=== PATIENT | female | born 1980 | race Caucasian/White ===

== ENCOUNTER 2016-12-02 12:04 | Day surgery (SDC) | payer SELFPAY ==
[~2016-12-02] VITALS: Ht 165.1 cm; Wt 66.5 kg
[2016-12-02] VITALS (10 sets, daily range): BP systolic 84–102; BP diastolic 50–60; PULSE 46–61; RESP 6–16; O2SAT 96–99
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
[~2016-12-02 12:04] MED LIST: Lactated Ringer's 1,000 ML IV SCH; OXYM30SP18 NS
[2016-12-02] MEDS ORDERED: Dexamethasone 4 mg/mL Inj ONE (12:05)
[2016-12-02] MEDS ORDERED: Oxytocin 10 Unit/mL Inj ONE (12:05)
[2016-12-02] MEDS ORDERED: fentaNYL-PF 50 mCg/mL 2 mL Inj ONE (12:05)
[2016-12-02] MEDS ORDERED: Propofol 10,000 mCg/mL 20 mL Inj ONE (12:05)
[2016-12-02] MEDS ORDERED: Oxytocin 10 Unit/mL Inj IV ONE ×2 (12:05)
[2016-12-02] MEDS ORDERED: Ondansetron 2 mg/mL 2 mL Inj ONE (12:05)
[2016-12-02] MEDS ORDERED: MetoCLOpramide 5 mg/mL 2 mL Inj ONE (12:05)
[2016-12-02] MEDS: Lactated Ringer's 1,000 ML IV SCH ×2 (12:10→14:17)
[2016-12-02] MEDS ORDERED: Lactated Ringer's 500 ML IV PRN (14:53)
[2016-12-02] MEDS ORDERED: Lactated Ringer's 1,000 ML IV SCH (14:53)
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
[2016-12-02] MEDS ORDERED: Phenylephrine 10,000 mCg/mL Inj IVPUSH PRN (14:55)
[2016-12-02] MEDS ORDERED: HYDROmorphone 1 mg/mL Inj IVPUSH PRN ×2 (14:55→16:25)
[2016-12-02] MEDS ORDERED: EPHEDrine Sulfate 50 mg/mL Inj IVPUSH PRN (14:55)
[2016-12-02] MEDS ORDERED: Dexamethasone 4 mg/mL Inj IVPUSH PRN (14:55)
[2016-12-02] MEDS ORDERED: fentaNYL-PF 50 mCg/mL 2 mL Inj IVPUSH PRN (14:55)
[2016-12-02] MEDS ORDERED: MetoCLOpramide 5 mg/mL 2 mL Inj IVPUSH PRN ×2 (14:55→16:25)
[2016-12-02] MEDS ORDERED: Ondansetron 2 mg/mL 2 mL Inj IVPUSH PRN ×2 (14:55→16:25)
--- NOTE | 2016-12-02 15:15 | PCM.ANEP1 ---
Post Anesthesia Phase 1 PACU Phase 1 Assessment Vital Signs Vital Signs Date Time Temp Pulse Resp B/P Pulse Ox O2 Delivery O2 Flow Rate FiO2 12/02/16 15:10 55 13 95/56 98 Room Air 12/02/16 15:08 37 55 12 96/60 98 Room Air 12/02/16 12:23 37 58 16 102/50 99 Room Air Anesthetic Administered: GA Level of Alertness: Sleepy, easy to arouse BARRERA's with Equal Strength: Yes Pain: No Nausea or Vomiting: No Oxygen Delivery: Room Air Lungs: Clear to Auscultation Dermatome Level: Full Sensation Mark Sharpe MD Dec 02, 2016 15:15
--- NOTE | 2016-12-02 16:10 | PCM.ANEP2 ---
Post Anesthesia Evaluation ASA/CMS Post Anesthesia VS in Patient's Normal Range?: Yes Resp Stable; Airway Patent?: Yes CV Function & Hydration Stable: Yes Mental Status Recovered?: Yes Pain control Satisfactory?: Yes N/V Control Satisfactory?: Yes Mark Sharpe MD Dec 02, 2016 16:10
--- NOTE | 2016-12-02 21:01 | OP ---
[address] [address] OPERATIVE REPORT PATIENT: LIZETTE WAN : 1980 MR#: [id number] ADMIT: 12/02/2016 JOB ID: [id number] DATE OF SURGERY: 12/02/2016 SURGEON: Jesus Manuel Jauregui MD ANESTHESIA: General. PREOPERATIVE DIAGNOSIS(ES): First trimester unsuccessful , with consideration for molar versus simply missed with intrauterine blood collection. POSTOPERATIVE DIAGNOSIS(ES): First trimester unsuccessful , with consideration for molar versus simply missed with intrauterine blood collection. PROCEDURE PERFORMED: Suction D and C. FINDINGS AT SURGERY: Uterus sounded to 8 cm. The cervix readily dilated to 8 mm. A large amount of tissue was recovered upon suction curettage. No additional tissue was recovered on followup gentle sharp curettage. Bleeding was significant at 250 mL during the case although essentially ceased by procedure's close, whereas bleeding greater than average may hint toward molar , smaller uterine size and known gestational age in conjunction with relatively low quantitative beta hCG level would suggest otherwise. We will depend on histologic analysis per pathologist for more specific determination regarding whether or not molar is present. PLAN: It certainly is anticipated that the patient will do very well during the postoperative time frame. The patient will be instructed to call the office in a few days for histology report regarding uterine contents and then to lay plans regarding followup, any further imaging or other studies, followup versus no beta HCG strategies, versus no followup of the HCG option, etc. PROCEDURE: The patient placed in the supine position on the operating table and general anesthesia was induced. She was then very carefully repositioned into the low dorsal lithotomy position and prepped and draped in the usual sterile manner. Appropriate time-out was taken. A weighted speculum was then placed posteriorly and a tenaculum on the anterior cervical lip, and another on the posterior cervical lip. The uterus was sounded, followed by ready cervical dilatation up to 8 mm. A size eight straight suction tip was then selected and suction curettage was accomplished with return of a large amount of tissue. Blood loss was approximately 250 mL during this process. Gentle sharp curettage was then accomplished with demonstration of no additional tissue and the uterine lining appeared twinned. Final suction curettage recovered no additional tissue, only blood and clots. At this point, the uterus was freida well and bleeding minimally. The intrauterine procedure was thus complete. The tenaculum was removed from the cervix and all instruments were removed from the uterus, cervix, and vagina. Sponge counts were all found to be correct. Only scant bleeding was occurring at this point in time. The patient was returned to supine position, awakened, and taken to the recovery room. ESTIMATED BLOOD LOSS: 250 mL. COMPLICATIONS: None. PROGNOSIS: Good for surgical recovery. PLAN: We will await histological analysis regarding the uterine contents/products of conception before further determination can be made regarding what type of pathologic followup and management is needed, if any.
--- NOTE | 2016-12-09 10:09 | PATH ---
SURGICAL PATHOLOGY Attending Physician:Jesus Manuel Jauregui M.D CASE STATUS: Signed Out PATIENT NAME: LIZETTE WAN PID: [id number] : 1980 DATE COLLECTED:12/02/2016 00:00 SPECIMEN: Products of conception CLINICAL HISTORY: 1st TRIMESTER LOSS, POSSIBLE MOLAR 1). CONTENTS OF CONCEPTION FINAL DIAGNOSIS: 1.PRODUCTS OF CONCEPTION: FRAGMENTS OF DECIDUAL TISSUE, GRAVID ENDOMETRIUM, AND SMALL FRAGMENTS OF IMMATURE PLACENTAL TISSUE WITH AVASCULAR CHORIONIC VILLI. NO SIGNIFICANT VILLOUS HYDROPIC CHANGE NOTED. ICD10 CODE O02.1 GROSS DESCRIPTION: Received in formalin, labeled with the patient' s name and "contents of conception", is one Vacutainer housing a collection of brown-cuenca tissue fragments measuring 6.0 x 6.0 x 0.3 cm in aggregate. No parts are identified. Lead Case Manager sections are submitted in cassettes 1A-1D. ([id number]) MICRO DESCRIPTION: See diagnosis. ICD-9 CODES: CPT CODES: 1: 59804 PROCEDURE/ADDENDA: Addendum SPI Addendum Diagnosis {Not Entered} Addendum Comment At the request of Dr. Jesus Manuel Jauregui, this addendum report is issued as a point of clarification. As stated in the original diagnosis, this products of conception specimen contained immature placental tissue with no significant villous hydropic change. The absence of hydropic change equates to no evidence of a molar . Electronically Signed Out Luiz Devine MD Electronically Signed Out Luiz Devine MD [facility] [address], [place] [address] Technical component performed at [facility], [facility] [address], [place], [address]
== END 2016-12-02 23:59 | disposition home or self-care (01) ==
LOC: SAS 12:04
PROVIDERS: ATTEND Obstetrics & Gynecology
DX: O02.1 Missed abortion (principal); I49.9 Cardiac arrhythmia, unspecified; J45.909 Unspecified asthma, uncomplicated; F41.9 Anxiety disorder, unspecified; R51 Headache; F12.90 Cannabis use, unspecified, uncomplicated; Z79.51 Long term (current) use of inhaled steroids
CPT/HCPCS: 59820; J1100; J2250; J2405; J2590; J2765; J3010; J7120